=== PATIENT | female | born 1955 | race Asian ===

== ENCOUNTER 2016-11-05 09:24 | Outpatient (CLI) | payer OTHER | END 2016-11-05 09:29 | disposition short-term general hospital (02) | LOC: AMB 09:24 | DX: M25.552 Pain in left hip (principal); M79.605 Pain in left leg; W01.0XXA Fall on same level from slipping, tripping and stumbling without subsequent striking against object, initial encounter; Y92.512 Supermarket, store or market as the place of occurrence of the external cause | CPT/HCPCS: A0425; A0429 ==

== ENCOUNTER 2016-11-05 09:27 | Emergency (ER) | payer OTHER ==
[~2016-11-05] VITALS: Ht 154.9 cm; Wt 77.6 kg
[2016-11-05 10:25] VITALS: BP 128/83; TEMP 98.2
== END 2016-11-05 10:25 | disposition home or self-care (01) ==
LOC: ED 09:27
DX: S96.912A Strain of unspecified muscle and tendon at ankle and foot level, left foot, initial encounter (principal); S70.02XA Contusion of left hip, initial encounter; W01.0XXA Fall on same level from slipping, tripping and stumbling without subsequent striking against object, initial encounter; Y92.89 Other specified places as the place of occurrence of the external cause
CPT/HCPCS: 99283

== ENCOUNTER 2017-05-03 12:57 | Emergency (ER) | payer BC, OTHER ==
[~2017-05-03] VITALS: Ht 154.9 cm; Wt 77.1 kg
[2017-05-03 14:33] LABS: PLATELET COUNT 224 K/uL (152-353)
[2017-05-03 14:37] LABS: POTASSIUM 3.8 mmol/L (3.6-5.2)
[2017-05-03 16:41] VITALS: BP 146/74; TEMP 98.2
== END 2017-05-03 16:48 | disposition home or self-care (01) ==
LOC: ED 12:57
DX: S33.5XXA Sprain of ligaments of lumbar spine, initial encounter (principal); S39.012A Strain of muscle, fascia and tendon of lower back, initial encounter; H15.9 Unspecified disorder of sclera; V43.52XA Car driver injured in collision with other type car in traffic accident, initial encounter
CPT/HCPCS: 36415; 80053; 81000; 85027; 96372; 99283; J1885

== ENCOUNTER 2018-03-25 09:13 | Outpatient (CLI) | payer OTHER | END 2018-03-25 18:57 | disposition home or self-care (01) | LOC: MAMMO 09:13 | DX: Z12.31 Encounter for screening mammogram for malignant neoplasm of breast (principal) ==

== ENCOUNTER 2018-11-08 12:58 | Outpatient (CLI) | payer OTHER | END 2018-11-08 20:19 | disposition home or self-care (01) | LOC: US 12:58 | DX: N64.59 Other signs and symptoms in breast (principal) ==

== ENCOUNTER 2019-03-27 10:27 | Outpatient (CLI) | payer OTHER | END 2019-03-27 19:32 | disposition home or self-care (01) | LOC: MAMMO 10:27 | DX: Z12.31 Encounter for screening mammogram for malignant neoplasm of breast (principal) ==

== ENCOUNTER 2020-05-16 09:37 | Outpatient (CLI) | payer OTHER | END 2020-05-16 21:49 | disposition home or self-care (01) | LOC: MAMMO 09:37 | PROVIDERS: ATTEND Internal Medicine | DX: Z12.31 Encounter for screening mammogram for malignant neoplasm of breast (principal) ==

== ENCOUNTER 2020-09-13 10:11 | Outpatient (CLI) | payer OTHER | END 2020-09-13 22:51 | disposition home or self-care (01) | LOC: LABW 10:11 | PROVIDERS: ATTEND Otolaryngology Otolaryngology/Facial Plastic Surgery | DX: E04.2 Nontoxic multinodular goiter (principal) | CPT/HCPCS: 36415; 84436; 84443 ==

== ENCOUNTER 2021-05-20 09:23 | Outpatient (CLI) | payer OTHER | END 2021-05-20 19:09 | disposition home or self-care (01) | LOC: MAMMO 09:23 | PROVIDERS: ATTEND Internal Medicine | DX: Z12.31 Encounter for screening mammogram for malignant neoplasm of breast (principal) ==

== ENCOUNTER 2021-06-24 10:34 | Outpatient (CLI) | payer OTHER | END 2021-06-24 19:43 | disposition home or self-care (01) | LOC: US 10:34 | PROVIDERS: ATTEND Internal Medicine | DX: I65.29 Occlusion and stenosis of unspecified carotid artery (principal); I67.2 Cerebral atherosclerosis; R42 Dizziness and giddiness ==

== ENCOUNTER 2022-05-07 14:23 | Outpatient (CLI) | payer OTHER | END 2022-05-07 17:00 | disposition home or self-care (01) | LOC: RAD 14:23 | PROVIDERS: ATTEND Internal Medicine | DX: R07.89 Other chest pain (principal); R06.02 Shortness of breath; M54.2 Cervicalgia ==

== ENCOUNTER 2022-07-06 14:05 | Outpatient (CLI) | payer OTHER | END 2022-07-06 19:03 | disposition home or self-care (01) | LOC: MAMMO 14:05 | PROVIDERS: ATTEND Internal Medicine | DX: Z12.31 Encounter for screening mammogram for malignant neoplasm of breast (principal) ==